=== PATIENT | female | born 1945 | race Caucasian/White ===

== ENCOUNTER → 2017-10-18 | Outpatient (CLI) | payer MEDICARE, OTHER ==
[~2017-10-18] MED LIST: ACID1CAP PO; ASPI-496 PO; CHOL500015 PO; CYAN1TAB29 PO; FISH1CAP PO; GINK60TA4 PO; GLIP5TAB10 PO; GLUC-111 PO; INSU100I13 SC; INSU100I32 SC; METF750T2 PO; NAPR-685 PO; SENN25TA9 PO; TRAM50TA2 PO; focus factor PO; magnesium with zinc PO
[2017-10-18 14:54] LABS: BASOPHILS # (AUTO) 0.03 x10^3/uL (0-0.1); BASOPHILS % (AUTO) 0 % (0-1); EOSINOPHILS # (AUTO) 0.16 x10^3/uL (0-0.4); EOSINOPHILS % (AUTO) 3 % (1-7); LYMPHOCYTES # (AUTO) 1.85 x10^3/uL (1-3.4); LYMPHOCYTES % (AUTO) 29 % (22-44); MD NO; MEAN CORPUSCULAR HGB CONC 33.3 g/dL (32.4-35.8); MEAN CORPUSCULAR VOLUME 87.2 fL (80-100); MEAN PLATELET VOLUME 8.7 fL (7.4-10.4); MONOCYTES # (AUTO) 0.51 x10^3/uL (0.2-0.8); MONOCYTES % (AUTO) 8 % (2-9); NEUTROPHILS # (AUTO) 3.81 x10^3/uL (1.8-6.8); NEUTROPHILS % (AUTO) 60 % (42-75); PLATELET COUNT 289 x10^3/uL (130-400); RED BLOOD COUNT 4.84 x10^6/uL (3.82-5.3); RED CELL DISTRIBUTION WIDTH 14.9 % (9.6-15.2)
[2017-10-18 15:05] LABS: INTERNATIONAL NORMALIZED RATIO 0.94 (0.93-1.1); PROTHROMBIN TIME 9.8 Seconds (9.6-11.5)
[2017-10-18 15:06] LABS: ALANINE AMINOTRANSFERASE 41 U/L (12-78); ALBUMIN 3.7 g/dL (3.4-5.0); ANION GAP 8 mmol/L (5-15); CALCIUM 9.1 mg/dL (8.5-10.1); CHLORIDE 109 mmol/L (98-107); CREATININE 0.77 mg/dL (0.55-1.02)
[2017-10-18 15:09] LABS: ALKALINE PHOSPHATASE 76 U/L (45-117); BILIRUBIN,TOTAL 0.3 mg/dL (0.2-1.0); TOTAL PROTEIN 7.4 g/dL (6.4-8.2)
== END ==
LOC: STAR 13:13
PROVIDERS: ATTEND Specialist
DX: Z01.818 Encounter for other preprocedural examination (principal); R94.31 Abnormal electrocardiogram [ECG] [EKG]
CPT/HCPCS: 36415; 71046; 80053; 85025; 85610; 85730; 86304; 93005

== ENCOUNTER 2017-10-23 05:26 | Inpatient (IN) | payer MEDICARE, OTHER ==
[~2017-10-23] VITALS: Ht 160 cm; Wt 82.1 kg
[2017-10-23] MEDS ORDERED: LACTATED RINGERS 1,000 ML IV SCH (06:04)
[2017-10-23 06:09] VITALS: BP 166/87
[2017-10-23] MEDS ORDERED: LIDOCAINE-MPF 2% ,5ML ONE (06:42)
[2017-10-23] MEDS ORDERED: SODIUM CHLORIDE 0.9% PF 10ML ONE (06:42)
[2017-10-23] MEDS ORDERED: CEFAZOLIN 1,000 MG ONE ×2 (06:42)
[2017-10-23] MEDS ORDERED: PROPOFOL 10 MG/ML, 20ML ONE ×2 (06:42→07:51)
[2017-10-23] MEDS ORDERED: SUCCINYLCHOLINE 20 MG/ML, 10ML ONE (06:42)
[2017-10-23] MEDS ORDERED: ROCURONIUM 10MG/ML,5ML ONE (06:42)
[2017-10-23] MEDS ORDERED: MIDAZOLAM 1 MG/ML, 2ML ONE (07:14)
[2017-10-23] MEDS ORDERED: FENTANYL PF 250 MCG/5ML ONE (07:14)
[2017-10-23] MEDS ORDERED: KETAMINE 10 MG/ML, 20ML ONE (07:17)
[2017-10-23] MEDS ORDERED: FAMOTIDINE 20 MG TABLET ONE (07:18)
[2017-10-23] MEDS ORDERED: ACETAMINOPHEN 500 MG TABLET ONE (07:18)
[2017-10-23] MEDS ORDERED: METOCLOPRAMIDE 10MG TABLET ONE (07:19)
[2017-10-23] MEDS ORDERED: GABAPENTIN 300 MG CAPSULE ONE (07:19)
[2017-10-23] MEDS ORDERED: INDIGO CARMINE 0.8%, 5ML ONE (07:20)
[2017-10-23] MEDS ORDERED: ISOSULFAN BLUE 10 MG/ML, 5ML IV ONE (07:20)
[2017-10-23] MEDS ORDERED: HEPARIN 1,000 UNITS/ML, 10ML ONE (07:21)
[2017-10-23] MEDS ORDERED: EPINEPHRINE 1 MG/ML, 1ML ONE (07:21)
[2017-10-23] MEDS ORDERED: BUPIVACAINE/PF 0.25% ONE (07:21)
[2017-10-23] MEDS ORDERED: GABAPENTIN 300 MG CAPSULE PO ONE (07:30)
[2017-10-23] MEDS ORDERED: FAMOTIDINE 20 MG TABLET PO ONE (07:30)
[2017-10-23] MEDS ORDERED: METOCLOPRAMIDE 10MG TABLET PO ONE (07:30)
[2017-10-23] MEDS ORDERED: ACETAMINOPHEN 500 MG TABLET PO ONE (07:30)
[2017-10-23] MEDS ORDERED: GLYCOPYRROLATE 0.2MG/1ML, 5ML ONE (07:51)
[2017-10-23] MEDS ORDERED: DEXAMETHASONE 4 MG/ML, 1ML ONE (07:51)
[2017-10-23] MEDS ORDERED: NEOSTIGMINE 1 MG/ML, 10ML ONE (07:51)
[2017-10-23] MEDS ORDERED: EPHEDRINE 50 MG/ML, 1ML ONE (07:51)
[2017-10-23] MEDS ORDERED: hydrALAzine 20 MG/ML, 1ML ONE (07:51)
[2017-10-23] MEDS ORDERED: PROMETHAZINE 25 MG/ML, 1ML IV PRN (10:00)
[2017-10-23] MEDS ORDERED: OXYcodone 5 MG/5 ML ORAL.SOL UDC PO PRN (10:00)
[2017-10-23] MEDS ORDERED: KETOROLAC 30 MG/1 ML IV PRN (10:00)
[2017-10-23] MEDS ORDERED: ALBUTEROL SULFATE 2.5 MG/3 ML NPPB PRN (10:00)
[2017-10-23] MEDS ORDERED: hydrALAzine 20 MG/ML, 1ML IV PRN (10:00)
[2017-10-23] MEDS ORDERED: morphine SULFATE 10 MG/ML, 1ML IV PRN (10:00)
[2017-10-23] MEDS ORDERED: KETOROLAC 30 MG/1 ML ONE (10:49)
[2017-10-23] MEDS ORDERED: FENTANYL PF 100 MCG/2ML ONE (11:49)
[2017-10-23] MEDS: FENTANYL PF 100 MCG/2ML IV PRN ×2 (11:51→11:58)
[2017-10-23] MEDS ORDERED: OXYcodone 5 MG/5 ML ORAL.SOL UDC ONE (11:54)
== END 2017-10-23 18:18 | disposition home or self-care (01) | DRG 743 ==
LOC: ORIP 05:26
PROVIDERS: ADMIT Specialist; ATTEND Specialist
PROC: 0UT74ZZ Resection of Bilateral Fallopian Tubes, Percutaneous Endoscopic Approach (ICD-10-PCS; 2017-10-23)
PROC: 0UT24ZZ Resection of Bilateral Ovaries, Percutaneous Endoscopic Approach (ICD-10-PCS; 2017-10-23)
PROC: 0UT94ZZ Resection of Uterus, Percutaneous Endoscopic Approach (ICD-10-PCS; principal; 2017-10-23 07:30)
DX: D27.0 Benign neoplasm of right ovary (principal); K66.0 Peritoneal adhesions (postprocedural) (postinfection)
CPT/HCPCS: 36415; 82962; 86850; 86900; 86923; 88305; 88307; J0171; J0690; J1100; J1644; J1885; J2250; J2704; J2710; J3010; J3490; J0330; J0360; J7120